=== PATIENT | female | born 1980 | race Caucasian/White ===

== ENCOUNTER 2017-07-28 10:02 | Emergency (ER) | payer OTHER ==
[~2017-07-28] VITALS: Ht 157.5 cm; Wt 52.6 kg
[~2017-07-28 10:02] MED LIST: ACET500; ALBU90OI INH; ALPR.5 PO; ANTOXYBENA OT; ARIP10 PO; AZIT250 PO; Bactrim Ds Tab1 EACH PO; CEPH500 PO; CIPR250 PO; CIPR500 PO; CITA20 PO; CLIN300 PO; CLON.5 PO; CRUTCH3 USE; CYCL10 PO; Citalopram HBr40 MG PO; DICL25ER PO; DOXY100 PO; DULO30 PO; ERYES400 PO; HYDACE10B PO; HYDACE5; HYDACE5 PO; HYDPAM50 PO; HYDR1TAB94 PO; Hydrocodone-Ap1 EA23 PO; IBUP600 PO; IBUP800 PO; Klonopin0.5 MG PO; LAVAP17G PO; LEVFLO500 PO; LORA2 PO; MEDR10 PO; MEDR150I IM; METCAR500 PO; METR500 PO; MIRT30 PO; MULVITMINE; NAPR375 PO; NAPR500 PO; NITR100CA PO; Norco 5-325 Ta1 EACH PO; OMEPRAZOLE MAGN20 MG PO; OSEL75CA PO; OXYACE5T; OXYACE5T PO; PARO20 PO; PHENA100 PO; PHENA200 PO; PRED20 PO; PRENATAL MULTI1 EACH PO; PROM25 PO; PROP60 PO; Percocet 5-3251 EACH PO; Protonix40 MG PO; QUET100 PO; QUET200 PO; QUET300 PO; RXTRAM50 PO; SERT100; SULTRIDS PO; TRAM50 PO; TRAZ100 PO; TRAZ50 PO; VENL25 PO; VENL37.5ER PO; Verotin-Gr Cap1 EACH PO; Zofran Odt4 MG PO; [UNRECOGNIZED DRUG - OTHER] PO
[2017-07-28] MEDS ORDERED: ZOLP5 PO (10:22)
[2018-04-27] MEDS ORDERED: Flagyl500 MG PO (17:47)
[2018-04-27] MEDS ORDERED: Norco 5-325 Ta1 EACH PO (17:47)
[2018-04-27] MEDS ORDERED: Vibramycin100 MG PO (17:47)
[2018-04-29] MEDS ORDERED: KETO10 PO (16:37)
== END 2017-07-28 11:56 | disposition home or self-care (01) ==
LOC: ER 10:02
DX: S46.812A Strain of other muscles, fascia and tendons at shoulder and upper arm level, left arm, initial encounter (principal); F41.9 Anxiety disorder, unspecified; F32.9 Major depressive disorder, single episode, unspecified; Z88.5 Allergy status to narcotic agent; Z88.0 Allergy status to penicillin; Z88.8 Allergy status to other drugs, medicaments and biological substances; Z79.899 Other long term (current) drug therapy; F17.200 Nicotine dependence, unspecified, uncomplicated; Z90.49 Acquired absence of other specified parts of digestive tract; Z98.51 Tubal ligation status; W01.0XXA Fall on same level from slipping, tripping and stumbling without subsequent striking against object, initial encounter
CPT/HCPCS: 73030; 96372; 99283; J1885

== ENCOUNTER 2017-09-15 13:00 | Emergency (ER) | payer OTHER ==
[~2017-09-15] VITALS: Ht 157.5 cm; Wt 53.5 kg
[~2017-09-15 13:00] MED LIST changes: +ZOLP5 PO
[2018-04-27] MEDS ORDERED: Flagyl500 MG PO (17:47)
[2018-04-27] MEDS ORDERED: Norco 5-325 Ta1 EACH PO (17:47)
[2018-04-27] MEDS ORDERED: Vibramycin100 MG PO (17:47)
[2018-04-29] MEDS ORDERED: KETO10 PO (16:37)
== END 2017-09-15 14:06 | disposition home or self-care (01) ==
LOC: ER 13:00
DX: R07.81 Pleurodynia (principal); F41.9 Anxiety disorder, unspecified; F32.9 Major depressive disorder, single episode, unspecified; F17.210 Nicotine dependence, cigarettes, uncomplicated; Z88.0 Allergy status to penicillin; Z88.5 Allergy status to narcotic agent; Z88.6 Allergy status to analgesic agent; Z88.8 Allergy status to other drugs, medicaments and biological substances; Z79.899 Other long term (current) drug therapy
CPT/HCPCS: 71100; 96372; 99283; J1885

== ENCOUNTER → 2019-03-21 | Outpatient (CLI) | payer OTHER ==
[~2019-03-21] MED LIST changes: +Flagyl500 MG PO; +KETO10 PO; +Vibramycin100 MG PO
[2019-03-25 18:06] LABS: HPV 16 Negative (Negative); HPV 18 Negative (Negative); HPV OTHER HR TYPES Negative (Negative)
== END | disposition home or self-care (01) ==
LOC: LAB 09:55 → LAB SHORT 09:55
PROVIDERS: Obstetrics & Gynecology
DX: N93.0 Postcoital and contact bleeding (principal); R10.2 Pelvic and perineal pain
CPT/HCPCS: 87624; 88142

== ENCOUNTER 2019-06-13 10:49 | Emergency (ER) | payer OTHER ==
[~2019-06-13] VITALS: Ht 157.5 cm; Wt 55.3 kg
[2019-06-13] MEDS ORDERED: Bactrim Ds Tab1 EACH PO (11:56)
== END 2019-06-13 12:05 | disposition home or self-care (01) ==
LOC: ER 10:49
DX: L03.114 Cellulitis of left upper limb (principal); F41.9 Anxiety disorder, unspecified; F32.9 Major depressive disorder, single episode, unspecified; F17.210 Nicotine dependence, cigarettes, uncomplicated; Z88.0 Allergy status to penicillin; Z88.5 Allergy status to narcotic agent; Z88.8 Allergy status to other drugs, medicaments and biological substances; Z79.899 Other long term (current) drug therapy; Z79.2 Long term (current) use of antibiotics
CPT/HCPCS: 99282

== ENCOUNTER 2019-10-22 08:30 | Day surgery (SDC) | payer OTHER | END 2019-10-23 22:50 | disposition home or self-care (01) | LOC: MOI MAM 08:30 | DX: D05.11 Intraductal carcinoma in situ of right breast (principal) | CPT/HCPCS: 19081 ==

== ENCOUNTER 2019-12-19 09:02 | Day surgery (SDC) | payer OTHER ==
[~2019-12-19] VITALS: Ht 154.9 cm; Wt 50.2 kg
[~2019-12-19 09:02] MED LIST changes: +ATIVAN0.5 MG PO; +DOXE50 PO
--- NOTE | 2019-12-19 10:37 | NUR ---
12/19/19 Teresa Cassidy PT BACK FROM IMAGING
--- NOTE | 2019-12-19 11:48 | NUR ---
12/19/19 1148 Jose Irvin SMALL LACERATION ON RIGHT FINGER. COVERED BY BANDAID. DR. HDEZ NOTIFIED. BANDAID COVERED WITH JIL ARAUJO, DR. PARK NOTIFIED ALSO. OK TO PROCEED.
== END 2019-12-19 13:41 | disposition home or self-care (01) ==
LOC: ORSCSDS 09:02 → NM 10:30 → ORSCSDS 13:41
PROVIDERS: Surgery
PROC: 0HBT0ZZ Excision of Right Breast, Open Approach (ICD-10-PCS; principal; 2019-12-19 11:30)
DX: D05.11 Intraductal carcinoma in situ of right breast (principal); F17.210 Nicotine dependence, cigarettes, uncomplicated; F41.8 Other specified anxiety disorders; Z79.899 Other long term (current) drug therapy
CPT/HCPCS: 38792; 88307; 88341; 88342; 88360; A9520; J1100; J1885; J2250; J2405; J2704; J3010; J7120; Q9968

== ENCOUNTER 2020-03-01 06:00 | Day surgery (SDC) | payer OTHER ==
[~2020-03-01] VITALS: Ht 157.5 cm; Wt 50.6 kg
--- NOTE | 2020-03-01 06:54 | NUR ---
PT ADMITTED TO [facility]. AGREES WITH PLANNED SURGERY. LUNG SOUNDS CLEAR.
--- NOTE | 2020-03-01 08:35 | NUR ---
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 VSS. SLEEPY BUT AROUSABLE. PATIENT MORE CALM AT THIS POINT. DENIES NAUSEA. PAIN REMAINS 10/09. NO ISSUES."
--- NOTE | 2020-03-01 09:31 | NUR ---
Patient up to Ambulate independently. Gait steady. Discharge instructions reviewed with patient. Patient verbalizes understanding. Copy given to patient to take home. Discharged via wheelchair to private car for ride home.
--- NOTE | 2020-03-02 13:22 | NUR ---
03/02/20 1322 Aziza Mckinney VERIFICATIONS: EDIT CHART.
== END 2020-03-01 22:49 | disposition home or self-care (01) ==
LOC: ORSCMMR 06:00 → ORD 07:30 → ORSCMMR 07:30
PROVIDERS: Surgery
PROC: 02HV33Z Insertion of Infusion Device into Superior Vena Cava, Percutaneous Approach (ICD-10-PCS; principal; 2020-03-01 07:30)
PROC: B5181ZA Fluoroscopy of Superior Vena Cava using Low Osmolar Contrast, Guidance (ICD-10-PCS; principal; 2020-03-01 07:30)
DX: D05.11 Intraductal carcinoma in situ of right breast (principal); K21.9 Gastro-esophageal reflux disease without esophagitis; F17.210 Nicotine dependence, cigarettes, uncomplicated; F31.9 Bipolar disorder, unspecified; Z79.899 Other long term (current) drug therapy
CPT/HCPCS: 77001; 87081; 87147; C1788; J0690; J1100; J1642; J2250; J2405; J2704; J3010; J7120

== ENCOUNTER → 2020-06-07 | Outpatient (CLI) | payer OTHER ==
[~2020-06-07] MED LIST changes: +ALPRAZOLAM0.25 MG PO; +Chantix1 MG; +ESCI10; +Norco 5-325 Ta1 EACH
[2020-06-08 16:09] LABS: HPV 16 Negative (Negative); HPV 18 Negative (Negative); HPV OTHER HR TYPES Negative (Negative)
== END | disposition home or self-care (01) ==
LOC: LAB SHORT 15:23 → LAB EV 15:23
PROVIDERS: Obstetrics & Gynecology
DX: Z01.419 Encounter for gynecological examination (general) (routine) without abnormal findings (principal)
CPT/HCPCS: 87624; G0123

== ENCOUNTER 2020-08-11 07:59 | Day surgery (SDC) | payer OTHER ==
[~2020-08-11] VITALS: Ht 157.5 cm; Wt 46.3 kg
[~2020-08-11 07:59] MED LIST changes: -Chantix1 MG; -ESCI10; -Norco 5-325 Ta1 EACH
--- NOTE | 2020-08-11 11:12 | NUR ---
C/O NAUSEA PRIOR TO REGLAN. STATES IT HAS IMPROVED SINCE REGLAN GIVEN.
--- NOTE | 2020-08-11 12:06 | NUR ---
PT GAUZE AROUNF GRZEGORZ DRIN WITH QUARTED SIZE SANG DRAINAGE NOTED THROUGH BREAST BINDER. REINFORCED WITH GAUZE AND REPLACED BREAST BINDER. NO MORE BLEEDING NOTED AT TIME OF DISCHARG. PT VERBALIZES UNDERSTANDING OF GRZEGORZ DRAIN CARE. PT RECEIVED 1.5 PAIN PILLS. Patient up to Ambulate independently. Gait steady. Discharge instructions reviewed with patient. Patient verbalizes understanding. Copy given to patient to take home. Dressing to procedure site clean, dry, intact with no visible drainage, swelling, erythema or bruising noted. Patient States Post-Procedure ride home has been arranged. Discharged via wheelchair to private car for ride home. TOLERATED PO FOOD AND FLUID. ALL BELONINGS RETURNED TO PATIENT.
[2021-01-11] MEDS ORDERED: Chantix1 MG (11:35)
[2021-01-11] MEDS ORDERED: ESCI10 (11:35)
[2021-01-11] MEDS ORDERED: Norco 5-325 Ta1 EACH (11:35)
== END 2020-08-11 12:06 | disposition home or self-care (01) ==
LOC: ORSCMMR 07:59 → ORD 09:30 → ORSCMMR 09:30
PROVIDERS: Surgery
PROC: 0HBT0ZZ Excision of Right Breast, Open Approach (ICD-10-PCS; principal; 2020-08-11 09:30)
PROC: 07B50ZX Excision of Right Axillary Lymphatic, Open Approach, Diagnostic (ICD-10-PCS; principal; 2020-08-11 09:30)
DX: Z40.01 Encounter for prophylactic removal of breast (principal); Z85.3 Personal history of malignant neoplasm of breast; F41.9 Anxiety disorder, unspecified; F31.9 Bipolar disorder, unspecified; Z79.899 Other long term (current) drug therapy; F17.210 Nicotine dependence, cigarettes, uncomplicated; Q85.00 Neurofibromatosis, unspecified
CPT/HCPCS: 88304; 88307; A9270; J1100; J1885; J2250; J2405; J2704; J2765; J3010; J7120

== ENCOUNTER 2021-01-04 11:27 | Emergency (ER) | payer OTHER ==
[~2021-01-04] VITALS: Ht 157.5 cm; Wt 47.6 kg
[2021-01-04 11:55] LABS: Calcium, Ionized (POC) 1.18 mmol/L (1.10-1.46); Chloride (POC) 104 mmol/L (98-108); Creatinine (POC) 0.7 mg/dL (0.6-1.0); Glucose (ISTAT POC) 139 mg/dL (70-99); Hemoglobin (POC) 13.6 g/dL (12.0-16.0); Potassium (POC) 6.1 mmol/L (3.5-5.5); Sodium (POC) 139 mmol/L (135-148); Total CO2 (POC) 27 mmol/L (21-32)
[2021-01-11] MEDS ORDERED: Chantix1 MG (11:35)
[2021-01-11] MEDS ORDERED: Norco 5-325 Ta1 EACH (11:35)
[2021-01-11] MEDS ORDERED: ESCI10 (11:35)
== END 2021-01-04 13:45 | disposition home or self-care (01) ==
LOC: ER 11:27
PROVIDERS: Emergency Medicine
DX: T40.2X1A Poisoning by other opioids, accidental (unintentional), initial encounter (principal); R56.9 Unspecified convulsions; F17.210 Nicotine dependence, cigarettes, uncomplicated; Z88.0 Allergy status to penicillin; Z88.8 Allergy status to other drugs, medicaments and biological substances; Z88.6 Allergy status to analgesic agent; Z79.899 Other long term (current) drug therapy
CPT/HCPCS: 80047; 85014; 96360; 99285-25; J7030

== ENCOUNTER 2021-01-20 14:23 | Day surgery (SDC) | payer OTHER ==
[~2021-01-20] VITALS: Ht 157.5 cm; Wt 46.2 kg
[~2021-01-20 14:23] MED LIST changes: +Chantix1 MG; +ESCI10; +Norco 5-325 Ta1 EACH
--- NOTE | 2021-01-20 17:08 | NUR ---
01/20/21 1708 Ruby Sevilla 0.15CC EPI ADDED INTO 30CC 0.5% MARCAINE=MARCAINE WITH EPI 1:200,000-15CC USED.
--- NOTE | 2021-01-20 17:47 | NUR ---
01/20/21 1747 Kathryn Hunt PATIENT RATES PAIN NOW AT 7/10 AND IS GETTING MORE COMFORTABLE
== END 2021-01-21 16:11 | disposition home or self-care (01) ==
LOC: ORSCSDS 14:23
PROVIDERS: Obstetrics & Gynecology
PROC: 0UT24ZZ Resection of Bilateral Ovaries, Percutaneous Endoscopic Approach (ICD-10-PCS; principal; 2021-01-20 16:00)
DX: C50.819 Malignant neoplasm of overlapping sites of unspecified female breast (principal); F17.210 Nicotine dependence, cigarettes, uncomplicated; F31.9 Bipolar disorder, unspecified; Z79.899 Other long term (current) drug therapy
CPT/HCPCS: 88305; A9270; J0171; J1100; J2250; J2405; J2704; J3010

== ENCOUNTER 2024-07-20 20:55 | Emergency (ER) | payer OTHER ==
[~2024-07-20] VITALS: Ht 157.5 cm; Wt 49.9 kg
[2024-07-20 21:37] LABS: BASOPHILS ABSOLUTE AUTO 0.08 K/mm3 (0.00-0.23); BASOPHILS PERCENT AUTO 1 % (0-2); EOSINOPHILS ABSOLUTE AUTO 0.14 K/mm3 (0.00-0.68); EOSINOPHILS PERCENT AUTO 1 % (0-6); Hematocrit 38.6 % (33.0-51.0); Hemoglobin 13.1 g/dL (11.5-16.0); IMMATURE GRAN ABSOLUTE AUTO 0.13 K/mm3 (0.00-0.10); IMMATURE GRAN PERCENT AUTO 1 % (0-1); LYMPHOCYTES ABSOLUTE AUTO 2.71 K/mm3 (0.84-5.20); LYMPHOCYTES PERCENT AUTO 23 % (21-46); MONOCYTES ABSOLUTE AUTO 1.13 K/mm3 (0.16-1.47); MONOCYTES PERCENT AUTO 10 % (4-13); Mean Corpuscular HGB 31.1 pg (26.0-34.0); Mean Corpuscular HGB Conc 33.9 g/dL (31.5-36.5); Mean Corpuscular Volume 92 fL (80-100); Mean Platelet Volume 8.8 fL (9.1-12.4); NEUTROPHILS ABSOLUTE AUTO 7.38 K/mm3 (1.96-9.15); NEUTROPHILS PERCENT AUTO 64 % (41-73); Platelet Count 291 K/mm3 (150-400); RDW Coefficient Variation 12.8 % (11.7-14.2); RDW Standard Deviation 42.8 fL (35.1-46.3); Red Blood Cell Count 4.21 M/mm3 (3.80-5.20); White Blood Cell Count 11.57 K/mm3 (4.00-11.30)
[2024-07-20 21:55] LABS: Albumin/Globulin Ratio 1.1 (0.8-1.8); Bilirubin, Total 0.2 mg/dL (0.1-1.0); Bun/Creatinine Ratio 18.3 (12.0-20.0); Calcium, Blood 9.7 mg/dL (8.5-10.1); Creatinine, Blood 0.66 mg/dL (0.40-1.00); Globulin, Blood 3.7 g/dL (2.2-4.0); Potassium, Blood 3.5 mmol/L (3.5-5.5); Total Protein, Blood 7.7 g/dL (6.4-8.2)
[2024-07-20 22:00] VITALS: BP 111/73
[2024-07-20] MEDS ORDERED: RX Prepack 2 Sprays Naloxone HCL 4 MG/SPRAY UD ONE (22:30)
== END 2024-07-20 22:37 | disposition home or self-care (01) ==
LOC: ER 20:55
PROVIDERS: Student in an Organized Health Care Education/Training Program
DX: T40.5X1A Poisoning by cocaine, accidental (unintentional), initial encounter (principal); F12.90 Cannabis use, unspecified, uncomplicated; F17.200 Nicotine dependence, unspecified, uncomplicated; Z88.5 Allergy status to narcotic agent; Z88.0 Allergy status to penicillin; Z88.6 Allergy status to analgesic agent; Z88.8 Allergy status to other drugs, medicaments and biological substances
CPT/HCPCS: 80053; 85025; 99284-25; A9270